=== PATIENT | female | born 1945 | race Caucasian/White ===

== ENCOUNTER 2019-02-10 16:41 | Inpatient (IN) ==
--- NOTE | 2019-02-10 17:47 | Emergency Department Note ---
ED Disposition Clinical Impression: Pneumonia Qualifiers: Pneumonia type: due to unspecified organism Laterality: right Lung location: lower lobe of lung Qualified Code(s): J18.1 - Lobar pneumonia, unspecified organism Disposition: Admitted as Observation Condition on Discharge: Fair Referrals: Chava Patel MD [Primary Care Provider] - - Critical Care Critical Care Time: No Attestation: On 02/10/19, the high probability of a clinically significant, sudden or life threatening deterioration of the following system(s) required my full and direct attention, intervention and personal management. The time I documented below is in addition to time spent performing reported procedures but includes the following listed in this critical care notation. Medical Decision Making - [place] Inquiry Pt receiving controlled substance: No Vital Signs: 02/10/19 16:49 02/10/19 17:53 Temperature 100.5 F H 99.8 F H Temperature Source Oral Oral Pulse Rate [Left Radial] 103 H 102 H Respiratory Rate 24 28 H Blood Pressure [Right Arm] 143/99 H 116/58 L Blood Pressure Mean [Right Arm] 113 77 Blood Pressure Source [Right Arm] Automatic Cuff Blood Pressure Position [Right Arm] Sitting Sitting 02 Sat by Pulse Oximetry 90 L 90 L Oxygen Delivery Method Nasal Cannula Nasal Cannula Oxygen Flow Rate (LPM) 4 4 - Lab Data Lab Results 02/10/19 17:30: WBC 5.6, RBC 4.44, Hgb 12.9, Hct 39.3, MCV 88.4, MCH 28.9, MCHC 32.7, RDW 12.9, Plt Count 166, MPV 8.6, Neut % (Auto) 90.2 H, Lymph % (Auto) 6.4 L, [place] % (Auto) 2.3, Eos % (Auto) 0.8, Baso % (Auto) 0.3, Neut # (Auto) 5.1, Lymph # (Auto) 0.4 L, [place] # (Auto) 0.1, Eos # (Auto) 0.0, Baso # (Auto) 0.0, Total Counted 100, Neutrophils % (Manual) 86 H, Band Neutrophils % 7.0, Lymphocytes % (Manual) 7 L, Platelet Estimate Normal, RBC Morphology Normal 02/10/19 17:30: Sodium 137, Potassium 3.7, Chloride 101, Carbon Dioxide 26, Anion Gap 13.7, BUN 16, Creatinine 0.78, Estimated Creat Clear 81, Estimated GFR 72, Est GFR ( Amer) 87, Glucose 103, Calcium 8.7, Troponin I 0.04 02/10/19 17:30: Total Bilirubin 0.9, Direct Bilirubin 0.2, Indirect Bilirubin 0.7, AST 32, ALT 19, Alkaline Phosphatase 112, Total Protein 6.6, Albumin 3.1 L 02/10/19 19:00: Urine Color Yellow, Urine Appearance Sl cloudy, Urine pH 6.5, Ur Specific [place] 1.020, Urine Protein Trace, Urine Glucose (UA) Negative, Urine Ketones Negative, Urine Blood Negative, Urine Nitrate Positive, Urine Bilirubin Negative, Urine Urobilinogen 4.0, Ur Leukocyte Esterase Trace, Urine WBC 5-10, Amorphous Sediment 2+, Urine Bacteria 4+ Result diagrams: 02/10/19 17:30 02/10/19 17:30 Orders (Tests/Meds): ED MEDICATIONS Generic Name Dose Route Start Last Admin Trade Name Freq PRN Reason Stop Dose Admin Azithromycin 500 mg/ Sodium 250 mls @ 250 mls/hr 02/10/19 18:00 02/10/19 19:19 Chloride IV 02/24/19 17:59 250 mls/hr Q24H HARDEEP Administration Protocol Ceftriaxone Sodium 1 gm/ 50 mls @ 100 mls/hr 02/10/19 18:00 02/10/19 18:59 Sodium Chloride IV 02/24/19 17:59 100 mls/hr Q24H HARDEEP Administration Protocol Discontinued Medications Generic Name Dose Route Start Last Admin Trade Name Freq PRN Reason Stop Dose Admin Acetaminophen 650 mg 02/10/19 18:16 02/10/19 18:59 Acetaminophen 325mg Tab PO 02/10/19 18:17 650 mg ONCE ONE Administration ORDERS Category Date Time Status D-Dimer Stat Lab 02/10/19 20:07 Ordered Influenza A&B Antigens, Rapid [Rapid Influenza A&B Lab 02/10/19 20:07 Ordered Antigens] Stat Lactic Acid Stat Lab 02/10/19 19:45 Received Blood Culture Stat Micro 02/10/19 18:50 Received Urine Culture Stat Micro 02/10/19 19:00 Received - Radiology Data #1 Image(s): Chest Image Reviewed: Yes I have reviewed radiologist's interpretation FINDINGS: The cardiomediastinal silhouette and pulmonary vascularity are within normal limits. Chronic interstitial changes are present with hyperinflation consistent with COPD. There is some vascular crowding in the right lung base. Cannot exclude infiltrate in the right lung base. Consider follow-up upright PA and lateral chest for further evaluation. No acute bony abnormalities. IMPRESSION: Chronic changes with possible right basilar atelectasis or infiltrate Dictated by: Jacob Arenas MD 02/10/2019 17:26 - ECG Data Tracing #1 EKG interpreted by Loco Garcia MD: Rhythm: sinus tachycardia Rate: 102 [place]: Left Ectopy: none Conduction: normal ST Segment Changes: none T Wave Changes: Nonspecific Q Waves: none Poor R wave progression - Physician Consults Physician Consulted: Jorge Time: 20:10 Reason -: Admission Comment/Response: Agrees to admit the patient to the hospital. We discussed the patient's clinical information, including history, exam, laboratory and radiology results and ED course. Per hospital procedure, I will write temporary bridge inpatient orders on the patient. Specific orders requested by the admitting physician: Requests d-dimer. Continue antibiotics. General Adult HPI - General Chief complaint: Shortness of Breath/Dyspnea Stated complaint: SOB, Chills, Body Aches Time Seen by Provider: 02/10/19 17:47 Mode of Arrival: EMS Limitations: No Limitations Description of Symptoms (Recalled from ER Triage Doc. by RN): to ed per squad with c/o sob, cough, nausea starting lastnight. pt denies chest pain, fever, chills. - History of Present Illness HPI narrative: Complains of shaking chills that began last night. Some trouble breathing today. Has had a cough productive of green sputum for about 3 weeks. Denies rhinorrhea or sore throat. Had a headache earlier today, but took Advil 2 hours ago and has no pain at present. No abdominal pain or diarrhea. Nausea, but no vomiting. No urinary symptoms. Has had some right side pain at the costal margin intermittently for a few months, but not now. - Related Data Allergies Allergy/AdvReac Type Severity Reaction Status Date / Time No Known Allergies Allergy Verified 02/10/19 17:40 [facility] History - Hepatitis A Screen Drug use history?: No High risk sexual behaviors?: No History of sexually transmitted infection?: No Currently employed?: No Childcare worker?: No Do you have indoor plumbing?: Yes Do you have electricity?: Yes Attestation statement:: This patient has been screened for Hepatitis A risk factors. I have reviewed the patient's past medical history: Yes - Social History Alcohol Intake: never Occupational Status: other ROS Obtained: Yes All systems reviewed & no additional complaints - Constitutional Constitutional: Reports chills, Denies fever(s) - ENT Ears, Nose, Mouth, and Throat: Denies nasal discharge, Denies sore throat - Cardiovascular Cardiovascular: Denies chest pain - Respiratory Respiratory: Yes cough, Yes dyspnea - Gastrointestinal Gastrointestingal: Reports: nausea. Denies: abdominal pain, diarrhea, vomiting - Genitourinary Female Genitourinary: Denies difficulty voiding - Neurologic Neurologic: Reports as per HPI, Reports headache(s) Physical Exam - General General appearance: alert, in no apparent distress - Head Head exam: atraumatic, normocephalic - Eye Eye exam: Present: normal appearance, EOMI - ENT ENT exam: Present: mucous membranes moist - Neck Neck exam: Present: normal inspection, trachea midline - Chest Chest inspection: Present: normal inspection, symmetric chest wall rise - Respiratory Respiratory exam: Present: normal lung sounds bilaterally. Absent: respiratory distress - Cardiovascular Cardiovascular exam: Present: normal rhythm, tachycardia, normal heart sounds - Abdominal Exam Abdominal exam: Present: soft, normal bowel sounds. Absent: distention, tenderness, guarding, rebound, rigidity - Extremities Exam Extremities exam: Present: normal inspection - Neurological Exam Neurological exam: Present: alert, oriented X3 - Psychiatric Psychiatric exam: Present: normal affect, normal mood - Skin Skin exam: Present: warm, dry
[2019-02-10 17:55] LABS: Anion Gap 13.7 mEq/L (5-15); Calcium 8.7 mg/dL (8.5-10.1)
[2019-02-10 18:09] LABS: Basophils % 0.3 % (0.1-2.0); Eosinophils % 0.8 % (0.1-12.0); Hematocrit 39.3 % (37.0-47.0); Hemoglobin 12.9 g/dL (12.2-16.2); Lymphocytes # 0.4 K/mm3 (0.7-4.5); Lymphocytes % 6.4 % (10-50); Mean Corpuscular HGB Conc 32.7 g/dL (31.8-35.4); Mean Corpuscular Volume 88.4 fl (81-99); Mean Platelet Volume 8.6 fl (7.4-10.4); Monocytes # 0.1 K/mm3 (0.1-1.0); Monocytes % 2.3 % (1.7-9.3); Neutrophils # 5.1 K/mm3 (1.8-7.8); Neutrophils % 90.2 % (37.0-80.0); Platelet Count 166 K/mm3 (142-424); Red Blood Count 4.44 M/mm3 (4.20-5.40); Red Cell Distribution Width 12.9 % (11.5-17.5); White Blood Count 5.6 K/mm3 (4.8-10.8)
[2019-02-10 18:47] LABS: Lymphocytes % 7 % (10-50); Neutrophils % 86 % (42-76); RBC Morphology Normal; Total Cells Counted 100
[2019-02-10 19:05] LABS: Albumin Level 3.1 gm/dL (3.4-5.0); Bilirubin,Direct 0.2 mg/dL (0.0-0.2); Bilirubin,Indirect 0.7 mg/dL (0.0-0.9); Bilirubin,Total 0.9 mg/dL (0.2-1.0); Total Protein,Serum 6.6 gm/dL (6.4-8.2)
[2019-02-10 19:17] LABS: Microscopic, Urine URINE MICROSCOPIC (MICROSCOPIC)
[2019-02-10 19:39] LABS: Appearance,Urine SL CLOUDY (Clear); Bilirubin,Urine Negative (Negative); Blood, Urine Negative (Negative); Color,Urine YELLOW (Yellow); Glucose,Urine (UA) Negative (Negative); Ketones,Urine Negative (Negative); Leukocyte Esterase,Urine TRACE (Negative); PH,Urine 6.5 (5.0-8.5); Protein,Urine TRACE (Negative)
[2019-02-10 19:42] LABS: Bacteria,Urine 4+ /lpf
[2019-02-10 19:43] LABS: Amorphous Sediment,Urine 2+ /lpf
[2019-02-10 21:25] LABS: ABG Base Excess -1.1 mmol/L (-2.4-2.3); ABG HCO3 23.1 mmhg (22.0-26.0); ABG Oxygen Saturation 95 % (90-100); ABG PCO2 35.3 mmhg (35.0-45.0); ABG PH 7.43 mmol/L (7.35-7.45); ABG PO2 73.7 mmhg (80-100); ABG TCO2 24.2 mmhg (23-27)
[2019-02-10 21:26] LABS: Allen's Test Y; Oxygen 4 %
--- NOTE | 2019-02-10 22:49 | History & Physical Report ---
*Admission Date: 02/10/19 *Chief complaint: Shortness of breath, shaking chills *History of present illness: This 73-year-old white female states that she has not felt well for nearly a month. Yesterday she developed a fever and shaking chills. She has had some fever and shaking chills today as well. She has had a cough productive of greenish sputum. She is not seeing blood in the sputum. She has not had chest pain. She has not had leg pain. She presented to the emergency room at [facility] for evaluation. Her chest x-ray is suggestive of atelectasis and possible infiltrate in the right base. Her white count is not elevated. Her oxygen saturations are low, 90%. Per Dr. Patel's request on admission d-dimer was obtained and is greater than 3000. The CTA of the chest with pulmonary embolism protocol has been obtained and the results are pending. She has received 100 mg of enoxaparin subcutaneously. She has been started on IV antibiotics, azithromycin and ceftriaxone. She has a history of hypertension hyperlipidemia, and depression. [facility] History Medical History: Reports:: Anxiety, Hypertension Denies:: Congestive Heart Failure, Deep Vein Thrombosis, Palpitations, Pulmonary Embolism, Renal Insufficiency *Have you ever received a pneumonia vaccine?: No *Have you received a flu vaccine this season?: Yes Other Medical History: Reports: Cataracts. Denies: Thyroid Disease Laterality Cases: Right: Carpal Tunnel Release, Bilateral: Cataract, Tonsillectomy Other Surgeries: Yes: Tubal Ligation Amputation: No Fractures: No - *Social History Educational Level: Completed High School Smoking Status: Former smoker Tobacco Type: cigarettes (Stopped 18 years ago) # Packs/Day (cigarettes): 1 #Yrs smoked (if former smoker): 39 Alcohol Intake: never Substance Use Type: denies use *Occupational Status:: other *Travel in the last 8 weeks: None Family Hx:: Coronary Artery Disease, Diabetes Comment: 2 brothers 5 sons 4 daughters. One daughter of pulmonary disease. Review of Systems - Constitutional Reports chills, Reports excessive sweating (Some recent), Reports fever(s), Reports lack of energy, Reports weakness, Denies weight loss - Eyes Denies change in vision - ENT Denies dizziness, Denies difficulty swallowing - *Cardiovascular Reports shortness of breath, Denies chest pain, Denies irregular heart rhythm, Denies radiating jaw, neck or arm pain, Denies fast heart rate - *Respiratory Reports change in phlegm color, Reports chest congestion, Reports cough, Reports shortness of breath, Denies coughing up blood, Denies pain with cough - *Gastrointestinal Denies abdominal pain, Denies change in bowel habits, Denies vomiting blood, Denies black, tarry stools - *Genitourinary Denies painful urination - *Musculoskeletal Reports joint pain, Reports back pain, Reports muscle weakness, Reports body aches - Integumentary/Breasts Denies bleeding lesions - *Neurologic Reports headache(s), Denies abnormal speech, Denies behavioral changes, Denies localized weakness - Psychiatric Denies behavioral changes, Denies depression - Hematologic/Lymphatic Denies easy bleeding, Denies easy bruising (Takes a baby aspirin each evening) - Allergic/Immunologic Denies lip swelling, Denies throat swelling Meds Home Medications Medication Instructions Recorded Confirmed Type Carvedilol [Carvedilol 12.5mg Tab] 12.5 mg PO DAILY 02/10/19 02/10/19 History Carvedilol [Carvedilol 12.5mg Tab] 25 mg PO DAILY 02/10/19 02/10/19 History Sertraline HCl [Zoloft] 100 mg PO DAILY 02/10/19 02/10/19 History Spironolactone [Spironolactone 25 mg PO DAILY 02/10/19 02/10/19 History 25mg Tablet] Allergies Allergy/AdvReac Type Severity Reaction Status Date / Time No Known Allergies Allergy Verified 02/10/19 17:40 Exam Vital signs and Labs for Last 24 Hours: Temp Pulse Resp BP Pulse Ox 97.9 F 80 22 95/52 L 92 L 02/10/19 20:41 02/10/19 20:41 02/10/19 20:41 02/10/19 20:41 02/10/19 20:41 Laboratory Results - last 24 hr 02/10/19 17:30: WBC 5.6, RBC 4.44, Hgb 12.9, Hct 39.3, MCV 88.4, MCH 28.9, MCHC 32.7, RDW 12.9, Plt Count 166, MPV 8.6, Neut % (Auto) 90.2 H, Lymph % (Auto) 6.4 L, [place] % (Auto) 2.3, Eos % (Auto) 0.8, Baso % (Auto) 0.3, Neut # (Auto) 5.1, Lymph # (Auto) 0.4 L, [place] # (Auto) 0.1, Eos # (Auto) 0.0, Baso # (Auto) 0.0, Total Counted 100, Neutrophils % (Manual) 86 H, Band Neutrophils % 7.0, Lymphocytes % (Manual) 7 L, Platelet Estimate Normal, RBC Morphology Normal 02/10/19 17:30: Sodium 137, Potassium 3.7, Chloride 101, Carbon Dioxide 26, Anion Gap 13.7, BUN 16, Creatinine 0.78, Estimated Creat Clear 81, Estimated GFR 72, Est GFR ( Amer) 87, Glucose 103, Calcium 8.7, Troponin I 0.04 02/10/19 17:30: Total Bilirubin 0.9, Direct Bilirubin 0.2, Indirect Bilirubin 0.7, AST 32, ALT 19, Alkaline Phosphatase 112, Total Protein 6.6, Albumin 3.1 L 02/10/19 17:30: D-Dimer 3540 H* 02/10/19 19:00: Urine Color Yellow, Urine Appearance Sl cloudy, Urine pH 6.5, Ur Specific [place] 1.020, Urine Protein Trace, Urine Glucose (UA) Negative, Urine Ketones Negative, Urine Blood Negative, Urine Nitrate Positive, Urine Bilirubin Negative, Urine Urobilinogen 4.0, Ur Leukocyte Esterase Trace, Urine WBC 5-10, Amorphous Sediment 2+, Urine Bacteria 4+ 02/10/19 19:45: Lactate 1.1 02/10/19 20:10: Influenza Type A Ag Negative, Influenza Type B Ag Negative 02/10/19 21:23: Specimen Source R/r, O2 % 4, ABG pH 7.43, ABG pCO2 35.3, ABG pO2 73.7 L, ABG HCO3 23.1, ABG Total CO2 24.2, ABG O2 Saturation 95, ABG Base Excess -1.1, Jacob Test Y I & O for Last 24 hours: Intake & Output 02/08/19 02/09/19 02/10/19 02/11/19 11:59 11:59 11:59 11:59 Weight 225 lb 9 oz - Constitutional no acute distress (In bed. Nasal O2 in place.) - *Routine HEENT Exam Head: Present: normocephalic Eye: Present: PERRL ENT: Present: mucous membranes moist - *Routine Neck Exam Present: supple. Absent: lymphadenopathy, thyromegaly - Routine Chest/Breast/Axilla Exam Chest wall: Absent: tenderness - *Routine Respiratory Exam Present: rales (Rales heard in the right base. Otherwise moving air well.). Absent: respiratory distress - *Routine Cardiovascular Exam Present: RRR - *Routine Abdominal Exam Present: soft (Obese) - *Routine Rectal Exam Comments: Rectal exam deferred - *Routine Extremities Exam Present: pulses intact. Absent: edema - *Routine Skin Exam Present: intact Comments: Mild diaphoresis - *Routine Neurological Exam Present: alert, oriented X3. Absent: motor deficit H&P: Result - Imaging and Cardiology CT scan - chest Status: VRC (No evidence of pulmonary embolism. Mild atelectasis/scarring. No consolidation area) Assessment and Plan (1) Pneumonia Current visit: Yes Status: Acute Qualifiers: Pneumonia type: due to unspecified organism Laterality: right Lung location: lower lobe of lung Qualified Code(s): J18.1 - Lobar pneumonia, unspecified organism Category: Medical Code(s): J18.9 - Pneumonia, unspecified organism (2) Rigors Current visit: Yes Status: Acute Category: Medical Code(s): R68.89 - Other general symptoms and signs (3) Elevated d-dimer Current visit: Yes Status: Acute Category: Medical Code(s): R79.89 - Other specified abnormal findings of blood chemistry - Assessment and plan all Dx Assessment and Plan for all problems:: Continue antibiotics. I will continue Lovenox 40 mg daily.
[2019-02-11 05:43] LABS: Basophils % 0.2 % (0.1-2.0); Eosinophils % 0.1 % (0.1-12.0); Hematocrit 34.9 % (37.0-47.0); Lymphocytes # 0.7 K/mm3 (0.7-4.5); Lymphocytes % 9.7 % (10-50); Mean Platelet Volume 8.4 fl (7.4-10.4); Monocytes # 0.3 K/mm3 (0.1-1.0); Neutrophils % 85.9 % (37.0-80.0); Platelet Count 120 K/mm3 (142-424); Red Blood Count 3.83 M/mm3 (4.20-5.40); White Blood Count 6.9 K/mm3 (4.8-10.8)
[2019-02-11 05:44] LABS: Hemoglobin 11.2 g/dL (12.2-16.2)
[2019-02-11 06:01] LABS: Anion Gap 8.1 mEq/L (5-15)
[2019-02-11 06:05] LABS: Calcium 7.7 mg/dL (8.5-10.1)
[2019-02-11 06:15] LABS: Lymphocytes % 11 % (10-50); Neutrophils % 80 % (42-76); RBC Morphology Normal; Total Cells Counted 100
--- NOTE | 2019-02-11 08:11 | Pharmacy Consult Notes ---
[facility] Pharmacy VTE Monitoring - Patient Demographics Admission date: 02/10/19 Report Date: 02/11/19 Time: 08:11 Allergies/Adverse Reactions: Patient Allergies No Known Allergies Allergy (Verified 02/10/19 17:40) Height: 1.6 m Weight: 102.313 kg Patient Problems: Current Active Problems Pneumonia (Acute) Rigors (Acute) Elevated d-dimer (Acute) - VTE Risk Labs: VTE Related Lab Results Hgb 11.2 g/dL (12.2-16.2) L D 02/11/19 05:10 Hct 34.9 % (37.0-47.0) L 02/11/19 05:10 Plt Count 120 K/mm3 (142-424) L D 02/11/19 05:10 BUN 15 mg/dL (7-18) 02/11/19 05:10 Creatinine 0.83 mg/dL (0.55-1.02) 02/11/19 05:10 Estimated Creat Clear 80 mL/min (50-200) 02/11/19 05:10 Was VTE Risk Assessment Performed: Yes VTE Score: 5 VTE Risk Level: Low Risk - Prophylaxis VTE Prophylaxis Ordered?: Yes Types of VTE Prophylaxis: TEDS Knee High Location of Applied Device: Bilateral Lower Extremeties - VTE Diagnosis Confirmed Treatment or plan recommended: Continue Current Treatment
--- NOTE | 2019-02-11 10:34 | Progress Note ---
Internal Medicine - PN: Subj *Date: 02/11/19 *Time: 10:31 Interval history: She feels somewhat better. She has a's light cough. She produced some sputum for examination. She is breathing easy however. She is afebrile. White count is still not elevated. Exam Vital signs and Labs for Last 24 Hours: Temp Pulse Resp BP Pulse Ox 100.7 F H 73 19 107/77 L 94 L 02/11/19 08:00 02/11/19 10:24 02/11/19 06:00 02/11/19 06:00 02/11/19 06:10 Laboratory Results - last 24 hr 02/10/19 17:30: WBC 5.6, RBC 4.44, Hgb 12.9, Hct 39.3, MCV 88.4, MCH 28.9, MCHC 32.7, RDW 12.9, Plt Count 166, MPV 8.6, Neut % (Auto) 90.2 H, Lymph % (Auto) 6.4 L, [place] % (Auto) 2.3, Eos % (Auto) 0.8, Baso % (Auto) 0.3, Neut # (Auto) 5.1, Lymph # (Auto) 0.4 L, [place] # (Auto) 0.1, Eos # (Auto) 0.0, Baso # (Auto) 0.0, Total Counted 100, Neutrophils % (Manual) 86 H, Band Neutrophils % 7.0, Lymphocytes % (Manual) 7 L, Platelet Estimate Normal, RBC Morphology Normal 02/10/19 17:30: Sodium 137, Potassium 3.7, Chloride 101, Carbon Dioxide 26, Anion Gap 13.7, BUN 16, Creatinine 0.78, Estimated Creat Clear 81, Estimated GFR 72, Est GFR ( Amer) 87, Glucose 103, Calcium 8.7, Troponin I 0.04 02/10/19 17:30: Total Bilirubin 0.9, Direct Bilirubin 0.2, Indirect Bilirubin 0.7, AST 32, ALT 19, Alkaline Phosphatase 112, Total Protein 6.6, Albumin 3.1 L 02/10/19 17:30: D-Dimer 3540 H* 02/10/19 19:00: Urine Color Yellow, Urine Appearance Sl cloudy, Urine pH 6.5, Ur Specific [place] 1.020, Urine Protein Trace, Urine Glucose (UA) Negative, Urine Ketones Negative, Urine Blood Negative, Urine Nitrate Positive, Urine Bilirubin Negative, Urine Urobilinogen 4.0, Ur Leukocyte Esterase Trace, Urine WBC 5-10, Amorphous Sediment 2+, Urine Bacteria 4+ 02/10/19 19:45: Lactate 1.1 02/10/19 20:10: Influenza Type A Ag Negative, Influenza Type B Ag Negative 02/10/19 21:23: Specimen Source R/r, O2 % 4, ABG pH 7.43, ABG pCO2 35.3, ABG pO2 73.7 L, ABG HCO3 23.1, ABG Total CO2 24.2, ABG O2 Saturation 95, ABG Base Excess -1.1, Jacob Test Y 02/11/19 05:10: WBC 6.9, RBC 3.83 L, Hgb 11.2 L D, Hct 34.9 L, MCV 91.0, MCH 29.1, MCHC 32.0, RDW 13.0, Plt Count 120 L D, MPV 8.4, Neut % (Auto) 85.9 H, Lymph % (Auto) 9.7 L, [place] % (Auto) 4.0, Eos % (Auto) 0.1, Baso % (Auto) 0.2, Neut # (Auto) 6.0, Lymph # (Auto) 0.7, [place] # (Auto) 0.3, Eos # (Auto) 0.0, Baso # (Auto) 0.0, Total Counted 100, Neutrophils % (Manual) 80 H, Band Neutrophils % 9.0 H, Lymphocytes % (Manual) 11, Platelet Estimate Normal, RBC Morphology Normal 02/11/19 05:10: Sodium 141, Potassium 4.1, Chloride 107, Carbon Dioxide 30, Anion Gap 8.1, BUN 15, Creatinine 0.83, Estimated Creat Clear 80, Estimated GFR 67, Est GFR ( Amer) 81, Glucose 93, Calcium 7.7 L D I & O for Last 24 hours: Intake & Output 02/08/19 02/09/19 02/10/19 02/11/19 11:59 11:59 11:59 11:59 Intake Total 3861 / 3861 Output Total 650 / 650 Balance 3211 / 3211 Weight 225 lb 9 oz Microbiology Reports for the Last 24 Hours: Microbiology 02/10/19 19:00 Urine,Catheterized Urine Culture - Preliminary 02/11/19 06:05 Sputum - Expectorated Sputum Gram Stain - Final - Constitutional no acute distress - *Routine HEENT Exam Head: Present: normocephalic Eye: Present: PERRL ENT: Present: mucous membranes moist - *Routine Neck Exam Present: supple - Routine Chest/Breast/Axilla Exam Breast: Absent: tenderness - *Routine Respiratory Exam Present: CTA bilaterally (The right basilar rales have actually decreased it seems.) - *Routine Cardiovascular Exam Present: RRR - *Routine Abdominal Exam Present: soft (Obese). Absent: tenderness - *Routine Extremities Exam Absent: edema Assessment and Plan (1) Pneumonia Current visit: Yes Status: Acute Qualifiers: Pneumonia type: due to unspecified organism Laterality: right Lung location: lower lobe of lung Qualified Code(s): J18.1 - Lobar pneumonia, unspecified organism Category: Medical Code(s): J18.9 - Pneumonia, unspecified organism (2) Rigors Current visit: Yes Status: Acute Category: Medical Code(s): R68.89 - Other general symptoms and signs (3) Elevated d-dimer Current visit: Yes Status: Acute Category: Medical Code(s): R79.89 - Other specified abnormal findings of blood chemistry - Assessment and plan all Dx Assessment and Plan for all problems:: Continue present regimen
--- NOTE | 2019-02-12 08:19 | Progress Note ---
Internal Medicine - PN: Subj *Date: 02/12/19 *Time: 08:17 Interval history: She is feeling quite well today. She is anxious to go home. She will probably be ready for discharge tomorrow morning. Exam Vital signs and Labs for Last 24 Hours: Temp Pulse Resp BP Pulse Ox 97.6 F 62 18 123/66 94 L 02/12/19 04:00 02/12/19 05:28 02/12/19 04:00 02/12/19 04:00 02/12/19 05:28 Laboratory Results - last 24 hr 02/10/19 19:00: Urine Color Yellow, Urine Appearance Sl cloudy, Urine pH 6.5, Ur Specific [place] 1.020, Urine Protein Trace, Urine Glucose (UA) Negative, Urine Ketones Negative, Urine Blood Negative, Urine Nitrate Positive, Urine Bilirubin Negative, Urine Urobilinogen 4.0, Ur Leukocyte Esterase Trace, Urine WBC 5-10, Amorphous Sediment 2+, Urine Bacteria 4+ I & O for Last 24 hours: Intake & Output 02/09/19 02/10/19 02/11/19 02/12/19 11:59 11:59 11:59 11:59 Intake Total 3861 / 3861 3310 / 3310 Output Total 850 / 850 1150 / 1150 Balance 3011 / 3011 2160 / 2160 Weight 225 lb 9 oz 238 lb 2 oz Microbiology Reports for the Last 24 Hours: Microbiology 02/10/19 19:00 Urine,Catheterized Urine Culture - Preliminary Gram Negative Rods 02/11/19 06:05 Sputum - Expectorated Sputum Gram Stain - Final - Constitutional no acute distress - *Routine HEENT Exam Head: Present: normocephalic Eye: Present: PERRL ENT: Present: mucous membranes moist - *Routine Respiratory Exam Present: CTA bilaterally (Only a few rales.) - *Routine Cardiovascular Exam Present: RRR - *Routine Abdominal Exam Present: soft (Obese) - *Routine Extremities Exam Absent: edema - *Routine Neurological Exam Present: alert Assessment and Plan (1) Pneumonia Current visit: Yes Status: Acute Qualifiers: Pneumonia type: due to unspecified organism Laterality: right Lung location: lower lobe of lung Qualified Code(s): J18.1 - Lobar pneumonia, unspecified organism Category: Medical Code(s): J18.9 - Pneumonia, unspecified organism (2) Rigors Current visit: Yes Status: Acute Category: Medical Code(s): R68.89 - Other general symptoms and signs (3) Elevated d-dimer Current visit: Yes Status: Acute Category: Medical Code(s): R79.89 - Other specified abnormal findings of blood chemistry - Assessment and plan all Dx Assessment and Plan for all problems:: Saline lock. DC telemetry. Anticipate discharge in the morning.
--- NOTE | 2019-02-12 17:06 | Electrocardiograph Report ---
APPROVED REPORT Exam: Resting ECG HR:102 bpm ECG Measurements Heart Rate 102 AXES RI 126 P -8 QRSd 86 QRS -33 QT 330 T42 QTc 430 <Conclusion> Sinus tachycardia Left axis deviation Pulmonary disease pattern Nonspecific ST-T wave abnormalities Abnormal ECG Electronically signed by : Shola Chávez, 02/12/2019 17:06:37
[2019-02-13 06:36] LABS: Basophils % 0.6 % (0.1-2.0); Eosinophils # 0.1 K/mm3 (0.0-0.4); Eosinophils % 3.5 % (0.1-12.0); Hematocrit 33.9 % (37.0-47.0); Hemoglobin 11.3 g/dL (12.2-16.2); Lymphocytes # 1.3 K/mm3 (0.7-4.5); Lymphocytes % 30.5 % (10-50); Mean Corpuscular HGB Conc 33.4 g/dL (31.8-35.4); Mean Corpuscular Volume 90.6 fl (81-99); Monocytes # 0.3 K/mm3 (0.1-1.0); Monocytes % 6.4 % (1.7-9.3); Neutrophils # 2.5 K/mm3 (1.8-7.8); Platelet Count 120 K/mm3 (142-424); Red Blood Count 3.74 M/mm3 (4.20-5.40); White Blood Count 4.2 K/mm3 (4.8-10.8)
[2019-02-13 06:47] LABS: Anion Gap 8.6 mEq/L (5-15)
[2019-02-13 07:05] LABS: Calcium 8.4 mg/dL (8.5-10.1)
--- NOTE | 2019-02-13 08:22 | Progress Note ---
Internal Medicine - PN: Subj *Date: 02/13/19 *Time: 08:19 Interval history: Dyspneic on exertion. Nurse reports O2 sats 88 when going to the bathroom and sometimes when sleeping. O2 restarted when back from bathroom which helped. Patient denies chest pain. She is eating without problems. She is voiding QS. She has been sitting in the chair and ambulates in the room. Urine shows E. coli urinary tract infection sensitive to the Rocephin. She does have one positive blood culture with ID pending. Exam Vital signs and Labs for Last 24 Hours: Temp Pulse Resp BP Pulse Ox 97.7 F 73 20 141/71 H 93 L 02/13/19 08:00 02/13/19 08:00 02/13/19 08:00 02/13/19 08:00 02/13/19 08:00 Laboratory Results - last 24 hr 02/13/19 05:37: WBC 4.2 L D, RBC 3.74 L, Hgb 11.3 L, Hct 33.9 L, MCV 90.6, MCH 30.3, MCHC 33.4, RDW 13.0, Plt Count 120 L, MPV 9.0, Neut % (Auto) 59.0, Lymph % (Auto) 30.5, Blount % (Auto) 6.4, Eos % (Auto) 3.5, Baso % (Auto) 0.6, Neut # (Auto) 2.5, Lymph # (Auto) 1.3, Blount # (Auto) 0.3, Eos # (Auto) 0.1, Baso # (Auto) 0.0 02/13/19 05:37: Sodium 142, Potassium 3.6, Chloride 107, Carbon Dioxide 30, Anion Gap 8.6, BUN 11 D, Creatinine 0.64 D, Estimated Creat Clear 39, Estimated GFR 91, Est GFR ( Amer) 110 D, Glucose 88, Calcium 8.4 L I & O for Last 24 hours: Intake & Output 02/10/19 02/11/19 02/12/19 02/13/19 11:59 11:59 11:59 11:59 Intake Total 3861 / 3861 3510 / 3510 250 / 250 Output Total 850 / 850 1150 / 1150 1300 / 1300 Balance 3011 / 3011 2360 / 2360 -1050 / -1050 Weight 225 lb 9 oz 238 lb 2.011 oz 239 lb 1 oz Microbiology Reports for the Last 24 Hours: Microbiology 02/10/19 18:50 Blood Blood Culture - Preliminary Gram Positive Cocci 02/11/19 06:05 Sputum - Expectorated Sputum Gram Stain - Final 02/11/19 06:05 Sputum - Expectorated Sputum Sputum Culture - Final Normal Respiratory Katrin 02/10/19 19:00 Urine,Catheterized Urine Culture - Final Escherichia coli 02/10/19 18:50 Blood Blood Culture - Preliminary NO GROWTH AFTER 48 HOURS - Constitutional no acute distress Comments: Appears comfortable. O2 on at 1 L/min. - *Routine Respiratory Exam Present: diminished air movement (Posteriorly) - *Routine Cardiovascular Exam Present: RRR - *Routine Abdominal Exam Present: soft, normoactive bowel sounds. Absent: tenderness - *Routine Extremities Exam Absent: edema, calf tenderness - *Routine Neurological Exam Present: alert, oriented X3 Assessment and Plan (1) Pneumonia Current visit: Yes Status: Acute Qualifiers: Pneumonia type: due to unspecified organism Laterality: right Lung location: lower lobe of lung Qualified Code(s): J18.1 - Lobar pneumonia, unspecified organism Category: Medical Code(s): J18.9 - Pneumonia, unspecified organism (2) Rigors Current visit: Yes Status: Acute Category: Medical Code(s): R68.89 - Other general symptoms and signs (3) Elevated d-dimer Current visit: Yes Status: Acute Category: Medical Code(s): R79.89 - Other specified abnormal findings of blood chemistry (4) E. coli UTI (urinary tract infection) Current visit: Yes Status: Acute Category: Medical Code(s): N39.0 - Urinary tract infection, site not specified; B96.20 - Unspecified Escherichia coli [E. coli] as the cause of diseases classified elsewhere (5) Bacteremia Current visit: Yes Status: Acute Category: Medical Code(s): R78.81 - Bacteremia (6) Morbid obesity with BMI of 40.0-44.9, adult Current visit: Yes Status: Acute Category: Medical Code(s): E66.01 - Morbid (severe) obesity due to excess calories; Z68.41 - Body mass index (BMI) 40.0-44.9, adult - Assessment and plan all Dx Assessment and Plan for all problems:: Continue with current IV antibiotics and duo nebs. Await ID of blood culture.
--- NOTE | 2019-02-14 07:55 | Progress Note ---
Internal Medicine - PN: Subj *Date: 02/14/19 *Time: 08:09 Interval history: Had a good day yesterday. She was up and about in the room. O2 sats did drop and oxygen was reapplied periodically as needed. She does have shortness of breath with exertion. She denies cough. She did sleep well and is eating well. She denies chest pain. She really wants to go home. Blood culture bacteria not IDed as yet. Repeat chest x-ray yesterday showed a mild CHF. I discussed with patient echocardiogram. She states she may have had one about 30 years ago. Exam Vital signs and Labs for Last 24 Hours: Temp Pulse Resp BP Pulse Ox 98.7 F 70 19 133/76 93 L 02/14/19 03:49 02/14/19 05:48 02/14/19 03:49 02/14/19 03:49 02/14/19 05:48 I & O for Last 24 hours: Intake & Output 02/11/19 02/12/19 02/13/19 02/14/19 11:59 11:59 11:59 11:59 Intake Total 3861 / 3861 3510 / 3510 250 / 250 480 / 480 Output Total 850 / 850 1150 / 1150 1300 / 1300 300 / 300 Balance 3011 / 3011 2360 / 2360 -1050 / -1050 180 / 180 Weight 225 lb 9 oz 238 lb 2.011 oz 239 lb 1 oz 236 lb 1 oz Microbiology Reports for the Last 24 Hours: Microbiology 02/10/19 18:50 Blood Blood Culture - Preliminary 02/10/19 18:50 Blood Blood Culture - Preliminary Gram Positive Cocci 02/11/19 06:05 Sputum - Expectorated Sputum Gram Stain - Final 02/11/19 06:05 Sputum - Expectorated Sputum Sputum Culture - Final Normal Respiratory Katrin 02/10/19 19:00 Urine,Catheterized Urine Culture - Final Escherichia coli Radiology Reports for the Last 24 Hours: 02/13/2019 chest x-ray IMPRESSION: Mild CHF with lingular infiltrate and trace right effusion - Constitutional no acute distress Comments: Appears comfortable. Wearing O2 - *Routine Respiratory Exam Comments: Few bibasilar crackles - *Routine Cardiovascular Exam Present: RRR - *Routine Abdominal Exam Present: soft, normoactive bowel sounds. Absent: tenderness, distended - *Routine Extremities Exam Absent: edema, calf tenderness - *Routine Neurological Exam Present: alert, oriented X3 Assessment and Plan (1) Pneumonia Current visit: Yes Status: Acute Qualifiers: Pneumonia type: due to unspecified organism Laterality: right Lung location: lower lobe of lung Qualified Code(s): J18.1 - Lobar pneumonia, unspecified organism Category: Medical Code(s): J18.9 - Pneumonia, unspecified organism (2) Rigors Current visit: Yes Status: Acute Category: Medical Code(s): R68.89 - Other general symptoms and signs (3) Elevated d-dimer Current visit: Yes Status: Acute Category: Medical Code(s): R79.89 - Other specified abnormal findings of blood chemistry (4) E. coli UTI (urinary tract infection) Current visit: Yes Status: Acute Category: Medical Code(s): N39.0 - Urinary tract infection, site not specified; B96.20 - Unspecified Escherichia coli [E. coli] as the cause of diseases classified elsewhere (5) Bacteremia Current visit: Yes Status: Acute Category: Medical Code(s): R78.81 - Bacteremia (6) Morbid obesity with BMI of 40.0-44.9, adult Current visit: Yes Status: Acute Category: Medical Code(s): E66.01 - Morbid (severe) obesity due to excess calories; Z68.41 - Body mass index (BMI) 40.0-44.9, adult (7) CHF (congestive heart failure) Current visit: Yes Status: Acute Category: Medical Code(s): I50.9 - Heart failure, unspecified (8) Hypoxia Current visit: Yes Status: Acute Category: Medical Code(s): R09.02 - Hypoxemia - Assessment and plan all Dx Assessment and Plan for all problems:: Echocardiogram. Will most likely need home oxygen to use as needed.
--- NOTE | 2019-02-14 09:33 | Progress Note ---
Internal Medicine - PN: Subj *Date: 02/14/19 *Time: 09:32 Exam Vital signs and Labs for Last 24 Hours: Temp Pulse Resp BP Pulse Ox 97.9 F 71 20 134/79 93 L 02/14/19 08:00 02/14/19 08:00 02/14/19 08:00 02/14/19 08:00 02/14/19 08:00 I & O for Last 24 hours: Intake & Output 02/11/19 02/12/19 02/13/19 02/14/19 23:59 23:59 23:59 23:59 Intake Total 4581 / 4581 2840 / 2840 680 / 680 360 / 360 Output Total 1550 / 1550 1050 / 1050 700 / 700 300 / 300 Balance 3031 / 3031 1790 / 1790 -20 / -20 60 / 60 Weight 108.012 kg 108.437 kg 107.076 kg Microbiology Reports for the Last 24 Hours: Microbiology 02/10/19 18:50 Blood Blood Culture - Preliminary 02/10/19 18:50 Blood Blood Culture - Preliminary Gram Positive Cocci 02/11/19 06:05 Sputum - Expectorated Sputum Gram Stain - Final 02/11/19 06:05 Sputum - Expectorated Sputum Sputum Culture - Final Normal Respiratory Katrin 02/10/19 19:00 Urine,Catheterized Urine Culture - Final Escherichia coli Assessment and Plan (1) Pneumonia Current visit: Yes Status: Acute Qualifiers: Pneumonia type: due to unspecified organism Laterality: right Lung location: lower lobe of lung Qualified Code(s): J18.1 - Lobar pneumonia, unspecified organism Category: Medical Code(s): J18.9 - Pneumonia, unspecified organism (2) Rigors Current visit: Yes Status: Acute Category: Medical Code(s): R68.89 - Other general symptoms and signs (3) Elevated d-dimer Current visit: Yes Status: Acute Category: Medical Code(s): R79.89 - Other specified abnormal findings of blood chemistry (4) E. coli UTI (urinary tract infection) Current visit: Yes Status: Acute Category: Medical Code(s): N39.0 - Urinary tract infection, site not specified; B96.20 - Unspecified Escherichia coli [E. coli] as the cause of diseases classified elsewhere (5) Bacteremia Current visit: Yes Status: Acute Category: Medical Code(s): R78.81 - Bacteremia (6) Morbid obesity with BMI of 40.0-44.9, adult Current visit: Yes Status: Acute Category: Medical Code(s): E66.01 - Morbid (severe) obesity due to excess calories; Z68.41 - Body mass index (BMI) 40.0-44.9, adult (7) CHF (congestive heart failure) Current visit: Yes Status: Acute Category: Medical Code(s): I50.9 - Heart failure, unspecified (8) Hypoxia Current visit: Yes Status: Acute Category: Medical Code(s): R09.02 - Hypoxemia The patient's infection will respond to the chosen ABx?: Yes Is the patient receiving the right drug, dose, and route?: Yes Could a more targeted ABx be ordered?: No (EMPIRIC THERAPY FOR PNEUMONIA)
--- NOTE | 2019-02-15 08:12 | Progress Note ---
Internal Medicine - PN: Subj *Date: 02/15/19 *Time: 08:09 Interval history: Patient states she is feeling better this morning. She diuresed some with the Lasix. She remained on oxygen throughout the night but has been off of oxygen this morning with sats in the lower 90s. She is anxious to go home. Her only complaint this morning is of a headache. Exam Vital signs and Labs for Last 24 Hours: Temp Pulse Resp BP Pulse Ox 97.9 F 84 18 156/87 H 93 L 02/15/19 03:54 02/15/19 06:13 02/15/19 03:54 02/15/19 03:54 02/15/19 06:13 I & O for Last 24 hours: Intake & Output 02/12/19 02/13/19 02/14/19 02/15/19 11:59 11:59 11:59 11:59 Intake Total 3510 / 3510 250 / 250 840 / 840 600 / 600 Output Total 1150 / 1150 1300 / 1300 300 / 300 Balance 2360 / 2360 -1050 / -1050 540 / 540 600 / 600 Weight 238 lb 2.011 oz 239 lb 1 oz 236 lb 1 oz 229 lb 1 oz - Constitutional no acute distress - *Routine Respiratory Exam Present: CTA bilaterally - *Routine Cardiovascular Exam Present: RRR - *Routine Abdominal Exam Present: soft, normoactive bowel sounds. Absent: tenderness - *Routine Extremities Exam Absent: cyanosis, clubbing, edema - *Routine Skin Exam Present: warm. Absent: rash - *Routine Neurological Exam Present: alert, oriented X3 Assessment and Plan (1) Pneumonia Current visit: Yes Status: Acute Qualifiers: Pneumonia type: due to unspecified organism Laterality: right Lung location: lower lobe of lung Qualified Code(s): J18.1 - Lobar pneumonia, unspecified organism Category: Medical Code(s): J18.9 - Pneumonia, unspecified organism (2) Rigors Current visit: Yes Status: Acute Category: Medical Code(s): R68.89 - Other general symptoms and signs (3) Elevated d-dimer Current visit: Yes Status: Acute Category: Medical Code(s): R79.89 - Other specified abnormal findings of blood chemistry (4) E. coli UTI (urinary tract infection) Current visit: Yes Status: Acute Category: Medical Code(s): N39.0 - Urinary tract infection, site not specified; B96.20 - Unspecified Escherichia coli [E. coli] as the cause of diseases classified elsewhere (5) Bacteremia Current visit: Yes Status: Acute Category: Medical Code(s): R78.81 - Bacteremia (6) Morbid obesity with BMI of 40.0-44.9, adult Current visit: Yes Status: Acute Category: Medical Code(s): E66.01 - Morbid (severe) obesity due to excess calories; Z68.41 - Body mass index (BMI) 40.0-44.9, adult (7) CHF (congestive heart failure) Current visit: Yes Status: Acute Category: Medical Code(s): I50.9 - Heart failure, unspecified (8) Hypoxia Current visit: Yes Status: Acute Category: Medical Code(s): R09.02 - Hypoxemia - Assessment and plan all Dx Assessment and Plan for all problems:: Still awaiting blood culture results and echo results. Possibly home later today.
--- NOTE | 2019-02-15 14:53 | Discharge Summary ---
General - General Admission date:: 02/10/19 Discharge date: 02/15/19 HPI HPI: This 73-year-old white female states that she has not felt well for nearly a month. Yesterday she developed a fever and shaking chills. She has had some fever and shaking chills today as well. She has had a cough productive of greenish sputum. She is not seeing blood in the sputum. She has not had chest pain. She has not had leg pain. She presented to the emergency room at [facility] for evaluation. Her chest x-ray is suggestive of atelectasis and possible infiltrate in the right base. Her white count is not elevated. Her oxygen saturations are low, 90%. Per Dr. Squires's request on admission d-dimer was obtained and is greater than 3000. The CTA of the chest with pulmonary embolism protocol has been obtained and the results are pending. She has received 100 mg of enoxaparin subcutaneously. She has been started on IV antibiotics, azithromycin and ceftriaxone. She has a history of hypertension hyperlipidemia, and depression. Hospital Course Hospital Course: The patient's CTA was negative for PE. It did show mild emphysematous changes and a few tiny pulmonary nodules. The patient was started on antibiotics and Lovenox 40 mg daily. Her symptoms did improve and she was able to be saline locked and her telemetry was discontinued. Her oxygen did drop into the 80s with exertion and while sleeping. She had a urine culture which was positive for E. coli and was sensitive to Rocephin. This was continued. She was also started on DuoNeb's. She had a repeat chest x-ray which showed mild CHF with lingular infiltrate and a trace right effusion. She was started on some Lasix and did diurese. Her shortness of breath greatly improved. An echocardiogram was ordered and is still pending. The preliminary report showed nothing of concern. She was able to be weaned off of her oxygen during the day with sats in the lower 90s, but did have to continue to sleep with oxygen. Her blood cultures were growing gram-positive cocci but they are still pending as well. The patient was anxious to be discharged home and was stable to be discharged on Bactrim as well as Lasix. She will need supplemental oxygen at home as well and will follow up with Dr. squires in the office. Objective Vital signs: Temp Pulse Resp BP Pulse Ox 97.8 F 76 16 155/79 H 94 L 02/15/19 12:00 02/15/19 12:00 02/15/19 12:00 02/15/19 12:00 02/15/19 12:00 Narrative: - Constitutional no acute distress (In bed. Nasal O2 in place.) - *Routine HEENT Exam Head: Present: normocephalic Eye: Present: PERRL ENT: Present: mucous membranes moist - *Routine Neck Exam Present: supple. Absent: lymphadenopathy, thyromegaly - Routine Chest/Breast/Axilla Exam Chest wall: Absent: tenderness - *Routine Respiratory Exam Present: rales (Rales heard in the right base. Otherwise moving air well.). Absent: respiratory distress - *Routine Cardiovascular Exam Present: RRR - *Routine Abdominal Exam Present: soft (Obese) - *Routine Rectal Exam Comments: Rectal exam deferred - *Routine Extremities Exam Present: pulses intact. Absent: edema - *Routine Skin Exam Present: intact Comments: Mild diaphoresis - *Routine Neurological Exam Present: alert, oriented X3. Absent: motor deficit Results Labs on day of discharge: Preliminary micro results at discharge 02/10/19 18:50 Blood Culture - Preliminary Blood 02/10/19 18:50 Blood Culture - Preliminary Blood Gram Positive Cocci DS: Diagnosis - Discharge Diagnosis (1) Pneumonia Status: Acute (2) Rigors Status: Acute (3) Elevated d-dimer Status: Acute (4) E. coli UTI (urinary tract infection) Status: Acute (5) Bacteremia Status: Acute (6) Morbid obesity with BMI of 40.0-44.9, adult Status: Acute (7) CHF (congestive heart failure) Status: Acute (8) Hypoxia Status: Acute Discharge Plan - Patient Discharge Instructions ACTIVITY: Continue current activity DIET: advance to your usual diet Patient Instructions: Pneumonia-Adult, Heart Failure, Escherichia coli Infection, Heart-Healthy Diet, Pneumococcal Vaccine, DI for Heart Failure, DI for Pneumonia -- Adult, DI for Urinary Tract Infection (UTI), Low-Sodium Diet - Follow up Plan Follow up with: Chava Squires MD [Primary Care Provider] - 02/26/19 Disposition: Home, Self-Half-Way Medications: Home Medications Medication Instructions Recorded Confirmed Type Carvedilol [Carvedilol 12.5mg Tab] 12.5 mg PO HS 08/31/19 09/01/19 History Carvedilol [Carvedilol 12.5mg Tab] 25 mg PO DAILY 02/10/19 02/10/19 History Sertraline HCl [Zoloft] 100 mg PO DAILY 02/10/19 02/10/19 History Spironolactone [Spironolactone 25 mg PO DAILY 02/10/19 02/10/19 History 25mg Tablet] Furosemide [Furosemide 40MG tAB] 40 mg PO DAILY #30 tab 02/15/19 Rx Potassium Chloride [Klor-Con 10mEq 10 meq PO DAILY #30 tablet.er 02/15/19 Rx tab] Sulfamethoxazole/Trimethoprim 1 each PO BID #14 tab 02/15/19 Rx [Bactrim DS tablet] Prescriptions/Medication Reconciliation: New Potassium Chloride [Klor-Con 10mEq tab] 10 meq PO DAILY #30 tablet.er Sulfamethoxazole/Trimethoprim [Bactrim DS tablet] 1 each PO BID #14 tab Furosemide [Furosemide 40MG tAB] 40 mg PO DAILY #30 tab Continued Spironolactone [Spironolactone 25mg Tablet] 25 mg PO DAILY Sertraline HCl [Zoloft] 100 mg PO DAILY Carvedilol [Carvedilol 12.5mg Tab] 25 mg PO DAILY Carvedilol [Carvedilol 12.5mg Tab] 12.5 mg PO HS - Problem Reconciliation Problems Reviewed?: Yes
--- NOTE | 2019-02-16 17:22 | Cardiology Report ---
APPROVED REPORT EXAM: Comprehensive 2D, Doppler, and color-flow Echocardiogram Doll Wig Maker: Traci Chiu, RT(R) Ht: 5 ft 2 in Wt: 236lbs BSA: 2.05 BP: 133/76 mmHg Indications: Congestive Heart Failure, Pneumonia, Hypoxia Shortness of Breath, Obesity, Dyspnea, Hypertension/HDD 2D Dimensions LVOT 1.80 cm (M/F) 1.5-2.5 M-Mode Dimensions RVDd 2.90 cm (0.9-2.6)LA Diam 4.10 cm (1.9-4.0) LVDd 5.30 cm (3.5-5.7)Ao Diam 2.90 cm (2.0-3.7) LVDs 3.20 cm (3.5-5.7)AV Cusp 1.70 cm (1.5-2.6) IVSd 1.00 cm (0.6-1.1)PWd 0.80 cm (0.6-1.1) EF (Teich) 69.60% FS 39.60% EDV (Teich) 135.00 mLESV (Teich) 41.00 mL LV Diastology E/A Ratio 0.6MED E' 5.17 (< 7 cm/sec) E'/MED E' Ratio12.20 (>14)LAT E' 9.36 (<10 cm/sec) E/LAT E' Ratio 6.80 (>14) Aortic Valve AoV Peak Ren. 131.00 (50-130 cm/s)AI PHT 270.00 ms AO Peak GR. 7.00 mmHg Mitral Valve MV E Max Ren. 63.20 (40-130 cm/s)MV A Velocity 106.00 (40-130 cm/s) E/A Ratio 0.60 Pulmonary Valve PA Accel Time 116.00 (>120 msec) Tricuspid Valve TR P. [id number] cm/s Left Ventricle Left atrium is mildly enlarged, left ventricle is normal size, mild concentric left ventricular hypertrophy, visually estimated ejection fraction 55% with no regional wall motion abnormality. Grade 1 diastolic dysfunction seen without tissue Doppler evidence of raise left atrial pressure. Right Ventricle Right atrium and right ventricle mildly enlarged with normal contractility. Aortic Valve Aortic valve is thickened and calcified leaflet continue to display good mobility, there is no aortic stenosis, there is mild aortic insufficiency. Mitral Valve Mitral valve is grossly normal, there is mild mitral regurgitation. Tricuspid Valve Tricuspid valve is grossly normal, there is mild tricuspid regurgitation Pulmonic Valve Pulmonic valve is poorly visualized. Great Vessels Aortic root is normal size. Pericardium No significant pericardial effusion noted. Conclusion 1. Biatrial enlargement, normal left ventricular size, mild concentric left ventricular hypertrophy, visually estimated ejection fraction 55% with no regional wall motion abnormality, grade 1 diastolic dysfunction seen without tissue Doppler evidence of raise left atrial pressure. 2. Mildly enlarged right ventricle with normal contractility. 3. Thickened and calcified aortic valve without aortic stenosis, there is mild aortic insufficiency. 4. Mild mitral and tricuspid regurgitation 5. No significant pericardial effusion noted, inferior vena cava is mildly dilated with normal inspiratory collapse. Electronically signed by : Chan Baez, 02/16/2019 17:22:21
== END 2019-02-15 12:33 | disposition home or self-care (01) | DRG 194 ==
LOC: ER 16:41 → 2ND 16:41
PROVIDERS: ADMIT Family Medicine; ATTEND Family Medicine
CPT/HCPCS: 36415; 71010; 71020; 71045; 71046; 71275; 80048; 80076; 81001; 82803; 83605; 84484; 85007; 85025; 85378; 87040; 87070; 87077; 87086; 87088; 87186; 87205; 87275; 87276; 93005; 93306; 94640; 94761; 96365; 96366; 99285; J0456; Q9967

== ENCOUNTER 2020-12-04 20:45 | Emergency (ER) | payer MEDICARE, OTHER, SELFPAY ==
[2020-12-04 20:54] VITALS: BP 156/91; PULSE 78; RESP 18; TEMP 36.5; O2SAT 94; BMI 37.7
--- NOTE | 2020-12-04 20:56 | ECG_ITS ---
APPROVED REPORT Exam: Resting ECG HR:74 bpm ECG Measurements Heart Rate 74 AXES NE 146 P 21 QRSd 90 QRS -38 QT 394 T 38 QTc 437 Conclusion Normal sinus rhythm Left axis deviation Abnormal ECG Electronically signed by : Trev Choudhary, 12/05/2020 15:58:29
[2020-12-04 21:02] VITALS: BP 146/85; PULSE 78; O2SAT 95
--- NOTE | 2020-12-04 21:03 | CT_ITS ---
PROCEDURE INFORMATION: Exam: CT Abdomen And Pelvis With Contrast Exam date and time: 12/04/2020 9:03 PM Age: 75 years old Clinical indication: Abdominal pain; Generalized; Prior surgery; Surgery date: 6+ months; Surgery type: Appendectomy, tubal ligation TECHNIQUE: Imaging protocol: Computed tomography of the abdomen and pelvis with contrast. Radiation optimization: All CT scans at this facility use at least one of these dose optimization techniques: automated exposure control; mA and/or kV adjustment per patient size (includes targeted exams where dose is matched to clinical indication); or iterative reconstruction. Contrast material: ISOVUE; Contrast volume: 75 ml; Contrast route: IV; COMPARISON: ABDPELW/O CT ABD PELVIS W/O CONTRAST 01/07/2016 8:54 AM FINDINGS: Liver: Normal. No mass. Gallbladder and bile ducts: Distended gallbladder but no calcified stones. Pancreas: Normal. No ductal dilation. Spleen: Normal. No splenomegaly. Adrenal glands: Normal. No mass. Kidneys and ureters: Normal. No hydronephrosis. Stomach and bowel: Diverticulosis in the sigmoid without diverticulitis. Constipation. No colitis. No small bowel obstruction. Appendix: Appendectomy. Intraperitoneal space: Unremarkable. No free air. No significant fluid collection. Vasculature: Unremarkable. No abdominal aortic aneurysm. Lymph nodes: Unremarkable. No enlarged lymph nodes. Urinary bladder: Unremarkable as visualized. Reproductive: Unremarkable as visualized. Bones/joints: Degenerative changes in the lower lumbar spine. Soft tissues: Unremarkable. IMPRESSION: No acute finding in the abdomen pelvis peer
--- NOTE | 2020-12-04 21:13 | HMH.EDBACK ---
ED Disposition Clinical Impression: Abdominal pain, Back pain Disposition: Home, Self-Care Condition on Discharge: Good Instructions: DI for Low Back Pain Additional Instructions: Return to the emergency department for worsening pain vomiting fever or any other concerns within the next 8 hours. Otherwise follow-up with your primary care physician tomorrow Referrals: Chava Patel MD [Primary Care Provider] - - Critical Care Critical Care Time: No Attestation: On 12/04/20, the high probability of a clinically significant, sudden or life threatening deterioration of the following system(s) required my full and direct attention, intervention and personal management. The time I documented below is in addition to time spent performing reported procedures but includes the following listed in this critical care notation. Medical Decision Making - Medical Records Medical records reviewed: Yes: I reviewed the patient's medical records. - [place] Inquiry Pt receiving controlled substance: No Vital Signs: 12/04/20 20:54 12/04/20 21:02 12/04/20 22:25 Temperature 97.7 F Temperature Source Oral Pulse Rate 78 68 Pulse Rate [Right] 78 Respiratory Rate 18 Blood Pressure 146/85 H 160/97 H Blood Pressure [Right Arm] 156/91 H Blood Pressure Mean [Right Arm] 112 Blood Pressure Source [Right Arm] Automatic Cuff Blood Pressure Position [Right Arm] Sitting 02 Sat by Pulse Oximetry 94 L 95 93 L Oxygen Delivery Method Room Air Room Air Room Air - Lab Data Lab Results 12/04/20 21:04: WBC 7.9, RBC 4.83, Hgb 14.2, Hct 41.8, MCV 86.4, MCH 29.3, MCHC 33.9, RDW 12.9, Plt Count 172, MPV 8.7, Neut % (Auto) 69.2, Lymph % (Auto) 22.6, Grady % (Auto) 3.6, Eos % (Auto) 3.8, Baso % (Auto) 0.7, Neut # (Auto) 5.5, Lymph # (Auto) 1.8, Grady # (Auto) 0.3, Eos # (Auto) 0.3, Baso # (Auto) 0.1 12/04/20 21:04: Sodium 135 L, Potassium 4.3, Chloride 101, Carbon Dioxide 27, Anion Gap 11.3, BUN 15, Creatinine 0.80, Estimated Creat Clear 73, Estimated GFR 70, Est GFR ( Amer) 84, Glucose 151 H, Calcium 9.2, Total Bilirubin 0.5, AST 30, ALT 14, Alkaline Phosphatase 92, Troponin I < 0.01, Total Protein 7.5, Albumin 4.4, Globulin 3.1, Albumin/Globulin Ratio 1.4, Lipase 204 Result diagrams: 12/04/20 21:04 12/04/20 21:04 Orders (Tests/Meds): ED MEDICATIONS Generic Name Dose Route Start Last Admin Trade Name Freq PRN Reason Stop Dose Admin Morphine Sulfate 4 mg 12/04/20 21:03 12/04/20 21:15 Morphine 4mg/Ml Syringe IV 01/03/21 21:02 4 mg Q1HP PRN Administration Moderate to Severe Pain Discontinued Medications Generic Name Dose Route Start Last Admin Trade Name Freq PRN Reason Stop Dose Admin Belladonna Alkaloids 60 ml 12/04/20 21:03 12/04/20 21:13 Gi Cocktail 60ml Udc PO 12/04/20 21:04 60 ml ONCE ONE Administration Iopamidol 75 ml 12/04/20 21:39 12/04/20 21:40 Iopamidol-370 (76%);100ml Bottle IV 12/04/20 21:40 75 ml ONCE ONE Administration Ondansetron HCl 4 mg 12/04/20 21:03 12/04/20 21:40 Ondansetron 4mg Odt SL 12/04/20 21:04 Not Given ONCE ONE Ondansetron HCl 4 mg 12/04/20 21:13 12/04/20 21:13 Ondansetron 4mg/2ml Vial IV 12/04/20 21:14 4 mg ONCE ONE Administration Sodium Chloride 10 ml 12/04/20 21:39 12/04/20 21:40 Sodium Chloride 0.9% 10ml Syr (Rad Only) IV 12/04/20 21:40 10 ml ONCE ONE Administration ORDERS Category Date Time Status Troponin I Q3H Lab 12/05/20 00:15 Ordered Troponin I Q3H Lab 12/05/20 03:15 Ordered Medical Decision Narrative: 75-year-old female presents with back pain radiating to her abdomen. She is in no acute distress nontoxic-appearing comfortable in the room. Her vital signs are stable. On my exam she did not have significant tenderness and her pain was improving. She did have burning in her chest when the episode occurred EKG shows no evidence of ischemic findings troponin has been ordered. Atyp
[2020-12-04 21:16] LABS: Basophils # 0.1 K/mm3 (0-0.2); Basophils % 0.7 % (0.1-2.0); Eosinophils # 0.3 K/mm3 (0.0-0.4); Eosinophils % 3.8 % (0.1-12.0); Hematocrit 41.8 % (37.0-47.0); Hemoglobin 14.2 g/dL (12.2-16.2); Lymphocytes # 1.8 K/mm3 (0.7-4.5); Lymphocytes % 22.6 % (10-50); Mean Corpuscular HGB Conc 33.9 g/dL (31.8-35.4); Mean Corpuscular Hemoglobin 29.3 pg (27.0-31.2); Mean Corpuscular Volume 86.4 fl (81-99); Mean Platelet Volume 8.7 fl (7.4-10.4); Monocytes # 0.3 K/mm3 (0.1-1.0); Monocytes % 3.6 % (1.7-9.3); Neutrophils # 5.5 K/mm3 (1.8-7.8); Neutrophils % 69.2 % (37.0-80.0); Platelet Count 172 K/mm3 (142-424); Red Blood Count 4.83 M/mm3 (4.20-5.40); Red Cell Distribution Width 12.9 % (11.5-17.5); White Blood Count 7.9 K/mm3 (4.8-10.8)
[2020-12-04 21:19] LABS: Alanine Aminotransferase 14 U/L (12-78); Albumin Level 4.4 g/dl (3.5-5.0); Albumin/Globulin Ratio 1.4 (1.1-1.8); Alkaline Phosphatase 92 U/L (38-126); Anion Gap 11.3 mEq/L (5-15); Aspartate Amino Transferase 30 U/L (14-36); Bilirubin,Total 0.5 mg/dl (0.2-1.3); Blood Urea Nitrogen 15 mg/dl (7-17); Calcium 9.2 mg/dl (8.4-10.2); Carbon Dioxide 27 mmol/L (22.0-30.0); Chloride 101 mmol/L (98-107); Creatinine Clearance Estimated 73 mL/min (50-200); Estimated Glomerular Filt Rate 70 ml/min (>60); GFR (African American) 84 ML/MIN (>60); Globulin 3.1 g/dL (1.3-3.2); Glucose 151 mg/dl (74-100); Lipase 204 U/L (23-300); Potassium 4.3 mmoL/L (3.5-5.1); Sodium 135 mmol/L (136-145); Total Protein,Serum 7.5 g/dl (6.3-8.2)
[2020-12-04 21:34] LABS: Troponin I < 0.01 ng/ml (0.00-0.034)
[2020-12-04 22:25] VITALS: BP 160/97; PULSE 68; O2SAT 93
[2020-12-04 22:34] VITALS: BP 162/98; PULSE 70; RESP 16; TEMP 36.6; O2SAT 94
== END 2020-12-04 22:40 | disposition home or self-care (01) ==
PROVIDERS: Emergency Provider Emergency Medicine; PCP Family Medicine
DX: M54.6 Pain in thoracic spine (principal); E78.5 Hyperlipidemia, unspecified; I10 Essential (primary) hypertension; F41.9 Anxiety disorder, unspecified; Z87.891 Personal history of nicotine dependence; Z79.899 Other long term (current) drug therapy
CPT/HCPCS: 74177; 80053; 83690; 84484; 85025; 93005; 96374; 96375; 99282; J2405; Q9967

== ENCOUNTER → 2023-01-04 23:36 | Outpatient (CLI) | payer MEDICARE, SELFPAY ==
[2023-01-04 18:54] LABS: Alanine Aminotransferase 15 U/L (12-78); Albumin Level 3.8 g/dl (3.5-5.0); Albumin/Globulin Ratio 1.4 (1.1-1.8); Alkaline Phosphatase 105 U/L (38-126); Anion Gap 9.5 mEq/L (5-15); Aspartate Amino Transferase 26 U/L (14-36); Basophils % 0.4 % (0.1-2.0); Bilirubin,Total 0.4 mg/dl (0.2-1.3); Blood Urea Nitrogen 20 mg/dl (7-17); Calcium 8.8 mg/dl (8.4-10.2); Carbon Dioxide 30 mmol/L (22.0-30.0); Chloride 103 mmol/L (98-107); Chol/HDL Ratio 9.5 (1-3.5); Cholesterol 208 mg/dl (140-200); Eosinophils # 0.2 K/mm3 (0.0-0.4); Eosinophils % 2.6 % (0.1-12.0); Estimated Glomerular Filt Rate 61 ml/min (>60); GFR (African American) 73 ML/MIN (>60); Globulin 2.8 g/dL (1.3-3.2); Glucose 96 mg/dl (74-100); HDL Cholesterol 22 mg/dl (40-60); Hematocrit 45.6 % (37.0-47.0); Hemoglobin 14.1 g/dL (12.2-16.2); Lymphocytes # 2.1 K/mm3 (0.7-4.5); Lymphocytes % 29.2 % (10-50); Mean Corpuscular HGB Conc 30.9 g/dL (31.8-35.4); Mean Corpuscular Hemoglobin 28.8 pg (27.0-31.2); Mean Corpuscular Volume 93.2 fl (81-99); Mean Platelet Volume 9.9 fl (7.4-10.4); Monocytes # 0.4 K/mm3 (0.1-1.0); Monocytes % 6.1 % (1.7-9.3); Neutrophils # 4.4 K/mm3 (1.8-7.8); Neutrophils % 61.6 % (37.0-80.0); Platelet Count 228 K/mm3 (142-424); Potassium 4.5 mmoL/L (3.5-5.1); Red Cell Distribution Width 12.6 % (11.5-17.5); Sodium 138 mmol/L (136-145); Total Protein,Serum 6.6 g/dl (6.3-8.2); Triglycerides 219 mg/dl (30-150); VLDL Cholesterol 44 mg/dL (0-40); White Blood Count 7.2 K/mm3 (4.8-10.8)
[2023-01-04 19:11] LABS: 25-OH Vitamin D, Total 17.9 ng/mL (30-100); T4 (Thyroxine) 8.4 ug/dl (5.53-11.0)
== END ==
PROVIDERS: PCP Emergency Medicine; Visit Provider Emergency Medicine
DX: R68.89 Other general symptoms and signs (principal); I10 Essential (primary) hypertension; E55.9 Vitamin D deficiency, unspecified; R79.89 Other specified abnormal findings of blood chemistry; J18.1 Lobar pneumonia, unspecified organism
CPT/HCPCS: 80053; 80061; 82306; 84436; 84443; 85025

== ENCOUNTER 2024-07-09 14:21 | Outpatient (CLI) | payer MEDICARE, SELFPAY ==
--- NOTE | 2024-07-09 14:28 | XR_ITS ---
FINAL REPORT TECHNIQUE: Chest PA & Lateral CLINICAL HISTORY: PERSISTENT COUGH COMPARISON: None FINDINGS: 2 views of the chest were performed. The heart size is normal. The mediastinum is within normal limits. There appears to be left suprahilar mass measuring 2.8 cm. The lungs are otherwise clear. There are no pleural effusions. There is no pneumothorax. The bony thorax appears intact. IMPRESSION: 2.8 cm left suprahilar mass. Recommend infused CT chest. Reviewed, Interpreted and Dictated by Sae Kim MD Transcribed by Irish Mccann Authenticated and [facility]
== END 2024-07-09 23:59 | disposition home or self-care (01) ==
LOC: RAD 14:23
PROVIDERS: PCP Family Medicine; Visit Provider Family Medicine
DX: R05.3 Chronic cough (principal)
CPT/HCPCS: 71046

== ENCOUNTER 2024-08-22 09:45 | Emergency (ER) | payer MEDICARE, SELFPAY ==
[2024-08-22] VITALS (8 sets, daily range): BP systolic 124–147; BP diastolic 84–105; PULSE 87–113; RESP 19–29; TEMP 36.6–36.8; O2SAT 90–95; BMI 31.8
--- NOTE | 2024-08-22 09:58 | PC.NURSE ---
DR GOLDSTEIN AT BEDSIDE
--- NOTE | 2024-08-22 10:03 | CT_ITS ---
FINAL REPORT CLINICAL HISTORY: Fall, lower back/pelvic pain COMPARISON: None FINDINGS: Axial images through the pelvis were performed by computed tomography. Sagittal and coronal reconstruction images were performed. This study was performed with techniques to keep radiation doses as low as reasonably achievable (ALARA). Individualized dose reduction techniques using automated exposure control or adjustment of mA and/or kV according to the patient's size were employed. No fracture is identified. No dislocation identified. There is mild degenerative narrowing of the hips bilaterally. There is advanced disc space narrowing at the L4-5 and L5-S1 levels. Mild hypertrophic change of the sacroiliac joints is noted. Incidental note is made of gallstones in the gallbladder. IMPRESSION: No acute process. Degenerative change of the hips and lumbar spine as described. Incidental note is made of gallstones. Reviewed, Interpreted and Dictated by Sae Kim MD Transcribed by Senait Appiah Authenticated and [facility]
--- NOTE | 2024-08-22 10:03 | CT_ITS ---
FINAL REPORT TECHNIQUE: Axial imaging of the lumbar spine was obtained without contrast. Reformatted images were also obtained and reviewed.This study was performed with techniques to keep radiation doses as low as reasonably achievable, (ALARA). Individualized dose reduction techniques using automated exposure control or adjustment of mA and/or kV according to the patient's size were employed. CLINICAL HISTORY: Fall, lower back pain FINDINGS: There is a 30% compression deformity of the superior endplate of L2. Vertebrae are otherwise normal in height. There is significant disc space narrowing from L2-3 through L5-S1. Minimal spondylolisthesis is seen of L3 on L4. T12-L1: Unremarkable. L1-2: Mild retropulsion of the superior endplate of L2 with mild bilateral neuroforaminal narrowing. L2-3: Diffuse disc bulge with mild to moderate right and moderate left neuroforaminal narrowing. L3-4: Moderate diffuse disc bulge accentuated by spondylolisthesis. There is moderate bilateral neuroforaminal narrowing. L4-5: Moderate diffuse disc bulge with posterior osteophytes and moderate bilateral neuroforaminal narrowing. L5-S1: Endplate hypertrophy with moderate to high-grade bilateral neuroforaminal narrowing. Note is made of an abdominal aortic aneurysm measuring 3.1 cm. IMPRESSION: 30% compression deformity of the superior endplate of L2. Multilevel degenerative changes as above. 3.1 cm abdominal aortic aneurysm. Reviewed, Interpreted and Dictated by Sae Kim MD Transcribed by Jocelyn Ogden Authenticated and . [facility]
[2024-08-22] MEDS: ACETAMINOPHEN 500MG TAB 1000 MG PO (10:11)
[2024-08-22] MEDS: METHOCARBAMOL 500MG TABLET 1000 MG PO (10:11)
--- NOTE | 2024-08-22 10:19 | ED_ITS ---
Discharge Plan Disposition Patient Disposition: Home, Self-Care Condition: Good Prescriptions Prescriptions: New methocarbamol 500 mg tablet 500 mg PO TID PRN (Reason: Spasms) 7 Days Qty: 21 0RF nitrofurantoin macrocrystal 100 mg capsule 100 mg PO BID 5 Days Qty: 10 0RF Rx Instructions: must administer with a meal/food No Action aspirin [Adult Low Dose Aspirin] 81 mg tablet,delayed release (DR/EC) 81 mg PO DAILY Qty: 90 3RF carvedilol 12.5 mg tablet 12.5 mg PO TID 90 Days Qty: 270 2RF Rx Instructions: 2 tabs in morning and 1 tab in the evening. sertraline 100 mg tablet 100 mg PO DAILY Qty: 90 3RF spironolactone 25 mg tablet 25 mg PO DAILY Qty: 90 3RF Referrals Follow up/Referrals: Juan Alan MD [Staff Physician] - See instructions Chava Patel MD [Primary Care Provider] - See instructions Activity Restrictions/Add. Instructions Additional Instructions/Restrictions: You can take Tylenol every 6 hours as needed to help with your symptoms. You are also being prescribed Robaxin to help with muscle relaxation. You can also use lidocaine patches, which you can order picker/assembler [id number], to help with pain. You are being referred to Dr. Alan with pain management to help with your symptoms. Call this number at your earliest convenience to set up an appointment: [phone]. You are also found to have a urinary tract infection and are being prescribed Macrobid. Take this as prescribed. If you develop any new or worsening symptoms, or if you become concerned for your health for any reason, return to the emergency department for evaluation Clinical Impressions Clinical Impression: Compression fracture of L2, Back pain, Acute UTI Instructions Patient Instructions: DI for Low Back Pain Print Language Print Language: Icelandic Discharge ED Provider: Jerald Gilliland Adult [facility] General Chief complaint: Back Pain/Injury Stated complaint: AO-Fall 07/29, lower back pain Time Seen by Provider: 08/22/24 09:56 Mode of Arrival: Wheelchair Source of Information: Patient and Relative Description of Symptoms (Recalled from ER Triage Doc. by RN): pt fell araound mid july on to bottom and had pain shoot up spine now, she is having aching pain across low back and is having a hard time doing daily functions around the house History of Present Illness HPI narrative: Carmen Garcia is a 78y female with a past medical history of obesity, UTI when ambulating at home at baseline who presents to the emergency department for complaints of lower back pain. Patient states that she uses a rollator at baseline, and on 07/29, she lost her balance while walking and ended up falling. Since then, she has had pain in her lower back that goes across her entire lower back and pelvic region. She has still been ambulatory since then and has been able to take care of her ill . She has been using Voltaren gel on her back and that relieves the pain. She also states that laying down oftentimes relieves the pain and she is able to go several hours until the pain returns. Her convinced her to come to the emergency department today due to her symptoms not resolving. She denies any other injuries or trauma or urinary symptoms and states that she has been urinating well and having normal bowel movements. Related Data Previous Rx's ?Medication ?Instructions ?Recorded aspirin 81 mg tablet,delayed 81 mg PO DAILY chf #90 tabs 04/12/23 release (Adult Low Dose Aspirin) carvedilol 12.5 mg tablet 12.5 mg PO TID 90 days #270 tabs 04/12/23 sertraline 100 mg tablet 100 mg PO DAILY Depression #90 tabs 04/12/23 spironolactone 25 mg tablet 25 mg PO DAILY Fluid #90 tabs 04/12/23 methocarbamol 500 mg tablet 500 mg PO TID PRN Spasms 7 days 08/22/24 #21 tabs nitrofurantoin macrocrystal 100 mg 100 mg PO BID 5 days #10 caps 08/22/24 capsule Allergies Allergy/AdvReac Type Severity Reaction Status Date / Time No Known Allergies Allergy Verified 08/22/24 09:51 [facility] Disclaimer: The information contained in this section may have been updated after the patient was seen, as this information can be updated by other users. Medical History (Updated 08/22/24 @ 13:11 by Jerald Gilliland MD) Vertigo Hypertension Surgical History (Updated 01/04/23 @ 14:58 by Nena Espinoza MA) Hx of appendectomy H/O tubal ligation Social History Smoking Status: Former smoker tobacco type: cigarettes packs per day: 1 second hand exposure: Yes alcohol intake: former substance use type: denies use current occupational status: retired Travel in the last 8 weeks: None household members: spouse housing: apartment caffeine: Yes Have you lived/traveled outside [place] in past 30 days?: No Contact w/someone who lives/traveled outside [place] past 30 days?: No Exposure to someone with infectious disease in past 14 days?: No Do you have a fever (greater than 100.4 F or 38 C)?: No Have you tested positive for COVID-19: No Exposed to someone with COVID-19 in past 14 days?: No Do you have a sore throat?: No Do you have a cough?: No Do you have any weakness?: No Do you have any diarrhea?: No Are you experiencing any unusual bleeding?: No Do you have any muscle aches/pain?: No Do you have any abdominal pain?: Yes Are you experiencing loss of taste or smell?: No Other Medical History Have you received the Flu Vaccine for this season: Yes Have you received the Pneumonia Vaccine: Yes ROS Obtained: Yes Systems reviewed as appropriate & no additional complaints except as documented Physical Exam General General appearance: alert and in no apparent distress Head Head exam: atraumatic Eye Eye exam: Present normal appearance ENT ENT exam: Present normal external ear exam Neck Neck exam: Present full ROM Chest Chest inspection: Present symmetric chest wall rise Respiratory Respiratory exam: Present normal lung sounds bilaterally; Absent respiratory distress Cardiovascular Cardiovascular exam: Present regular rate and normal rhythm Abdominal Exam Abdominal exam: Present soft; Absent tenderness or guarding Extremities Exam Extremities exam: Present normal inspection Back Exam Back exam: Present normal inspection; Absent paraspinal tenderness or vertebral tenderness Neurological Exam Neurological exam: Present alert and oriented X3 Psychiatric Psychiatric exam: Present normal affect Skin Skin exam: Present warm and dry Medical Decision Making Medical Records Screening: Per USPSTF and CDC recommendations, given the prevalence of disease in our region, it is our hospital?s policy to screen for HIV and viral Hepatitis for all patients aged 18 and over and those with ongoing risk factors. [place] Inquiry Pt receiving controlled substance: No Vital Signs: 08/22/24 09:54 08/22/24 10:00 08/22/24 10:30 Temperature 97.9 F Temperature Source Oral Pulse Rate 113 H 90 Pulse Rate [Left Radial] 89 Respiratory Rate 21 29 H 19 Blood Pressure 130/101 H 126/84 Blood Pressure [Right Arm] 147/105 H Blood Pressure Mean Blood Pressure Mean [Right Arm] 119 02 Sat by Pulse Oximetry 93 L 95 92 L Oxygen Delivery Method Room Air Room Air Room Air 08/22/24 11:00 08/22/24 11:30 08/22/24 12:00 Temperature Temperature Source Pulse Rate 89 91 H 87 Pulse Rate [Left Radial] Respiratory Rate 21 Blood Pressure 127/105 H 127/88 140/86 Blood Pressure [Right Arm] Blood Pressure Mean 112 114 Blood Pressure Mean [Right Arm] 02 Sat by Pulse Oximetry 92 L 90 L 91 L Oxygen Delivery Method Room Air 08/22/24 12:30 08/22/24 13:10 Temperature 98.2 F Temperature Source Pulse Rate 90 92 H Pulse Rate [Left Radial] Respiratory Rate 20 Blood Pressure 124/85 142/91 H Blood Pressure [Right Arm] Blood Pressure Mean Blood Pressure Mean [Right Arm] 02 Sat by Pulse Oximetry 95 Oxygen Delivery Method Room Air Room Air Lab Data Lab Results 08/22/24 11:10: Urine Color Yellow, Urine Appearance Slightly cloudy, Urine pH 5.5, Ur Specific Newton 1.025, Urine Protein Negative, Urine Glucose (UA) Negative, Urine Ketones Negative, Urine Blood Negative, Urine Nitrate Positive A , Urine Bilirubin Negative, Urine Urobilinogen 1.0, Ur Leukocyte Esterase 1+ A, Urine RBC Occasional, Urine WBC 10-20, Ur Squamous Epith Cells 5-10, Urine Bacteria 4+ Orders (Tests/Meds): ED MEDICATIONS Discontinued Medications Generic Name Dose Route Start Last Admin Trade Name Freq PRN Reason Stop Dose Admin Acetaminophen 1,000 mg 08/22/24 10:03 08/22/24 10:11 Acetaminophen 500mg Tab PO 08/22/24 10:04 1,000 mg ONCE ONE Administration Methocarbamol 1,000 mg 08/22/24 10:04 08/22/24 10:11 Methocarbamol 500mg Tablet PO 08/22/24 10:05 1,000 mg ONCE ONE Administration ORDERS Category Date Time Status CT bony pelvis Stat Cat Scan 08/22/24 10:[address] lumbar spine wo con Stat Cat Scan 08/22/24 10:03 Completed UA [Urinalysis and Microscopic] Stat Lab 08/22/24 11:10 Completed Urine Culture Stat Micro 08/22/24 11:10 Received Medical Decision Narrative: Carmen Garcia is a 78y female with a past medical history of obesity, UTI when ambulating at home at baseline who presents to the emergency department for complaints of lower back pain. Patient states that she uses a rollator at baseline, and on 07/29, she lost her balance while walking and ended up falling. Since then, she has had pain in her lower back that goes across her entire lower back and pelvic region. She has still been ambulatory since then and has been able to take care of her ill . She has been using Voltaren gel on her back and that relieves the pain. She also states that laying down oftentimes relieves the pain and she is able to go several hours until the pain returns. Her convinced her to come to the emergency department today due to her symptoms not resolving. She denies any other injuries or trauma or urinary symptoms and states that she has been urinating well and having normal bowel movements. On arrival, patient is mildly hypertensive but heart rate within normal limits, breathing comfortably on room air no acute respiratory distress. Afebrile. Physical exam, as stated above, revealed an overall well-appearing female in no distress. Cardiopulmonary exam is unremarkable. She has some mild bilateral lumbar paraspinal muscle tenderness but no midline tenderness in the lumbar spine or sacrum. Differential diagnosis includes, but is not limited to: UTI, spinal fracture, pelvic fracture, soft tissue injury, muscle strain, among others. Workup in the emergency department included: CT lumbar spine, CT bony pelvis, urinalysis. Lab work was considered, however given the patient's mechanism of injury and symptomatology, as well as reassuring vital signs, these are not indicated as they would not change ED management and were deferred at this time. Patient was treated symptomatically with Robaxin 1000 mg p.o. and [address] imaging was interpreted by me personally prior to official radiology read. No acute pelvic fractures. Patient does have degenerative changes of the lumbar spine and evidence of a mild superior endplate compression deformity at L2. Per radiology report there is 30% height loss at the superior endplate but vertebra otherwise maintaining normal height. See final radiology report for details. Given patient does not have any midline tenderness and height loss less than 50%, is felt that no spine surgeon evaluation is indicated. Given her prolonged pain, we will refer her to Dr. Bux for pain management and prescribe Robaxin and lidocaine patches for her to use at home. She was also encouraged to use Tylenol to help with symptoms. Return precautions were given. All questions were answered. She demonstrated understanding and was agreed with this plan. She was then discharged from the emergency department in stable condition Critical Care Critical Care Time Critical Care Time: No
[2024-08-22 11:12] LABS: Microscopic, Urine URINE MICROSCOPIC (MICROSCOPIC)
[2024-08-22 11:24] LABS: Appearance,Urine Slightly Cloudy (Clear); Color,Urine Yellow (Yellow)
[2024-08-22 11:25] LABS: Bilirubin,Urine Negative (Negative); Blood, Urine Negative (Negative); Glucose,Urine (UA) Negative (Negative); Ketones,Urine Negative (Negative); Nitrate,Urine POSITIVE (Negative); PH,Urine 5.5 (5.0-8.5); Protein,Urine Negative (Negative); Specific Gravity, Urine 1.025 (1.005-1.030)
[2024-08-22 11:26] LABS: Bacteria,Urine 4+ /lpf; Leukocyte Esterase,Urine 1+ (Negative); RBC,Urine Occasional #/hpf (0-3)
--- NOTE | 2024-08-24 09:00 | PC.NURSE ---
URINE CULTURE DISCUSSED WITH DR AMATO, NO NEW ORDERS
== END 2024-08-22 13:12 | disposition home or self-care (01) ==
PROVIDERS: Emergency Provider Student in an Organized Health Care Education/Training Program; PCP Family Medicine
DX: S32.020A Wedge compression fracture of second lumbar vertebra, initial encounter for closed fracture (principal); N39.0 Urinary tract infection, site not specified; M54.50 Low back pain, unspecified; W01.0XXA Fall on same level from slipping, tripping and stumbling without subsequent striking against object, initial encounter; Y93.89 Activity, other specified; Y92.9 Unspecified place or not applicable
CPT/HCPCS: 72131; 72192; 81001; 87086; 87088; 87186; 99284

== ENCOUNTER 2024-10-29 09:06 | Outpatient (CLI) | payer MEDICARE, SELFPAY ==
--- OUTSIDE RECORDS SUMMARY | 2024-10-29 09:09 | XMS_ITS ---
Author Organization Unknown TREATMENT PLAN Planned Care Start Date Provider Encounter for Check-up [id number] [facility]
--- NOTE | 2024-10-29 09:13 | XR_ITS ---
FINAL REPORT TECHNIQUE: Bone densitometry calculations of the lumbar spine and left hip were obtained. CLINICAL HISTORY: SCREENING COMPARISON: None FINDINGS: Using L1-4, the bone mineral density of the spine is 1.109 g/cm2, corresponding to T-score of 0.6. Using the left hip, the bone mineral density of the femoral neck is 0.592 g/cm2, corresponding to a T-score of -2.3. Using the right hip, the bone mineral density of the femoral neck is 0.677 g/cm?, corresponding to a T-score of -1.5. NOTE: T-score: Standard deviation compared with peak bone mass of young adult mean. *Following the recommendations of the International Society of Bone densitometry, classification of hip BMD is based on the lower of two T-scores; total hip or femoral neck. IMPRESSION: Diminished bone mineral density of the bilateral hips consistent with osteopenia. Normal bone mineral density of the lumbar spine. Reviewed, Interpreted and Dictated by Sae Kim MD Transcribed by Senait Appiah Authenticated and [facility]
== END 2024-10-29 23:59 | disposition home or self-care (01) ==
LOC: RAD 09:08
PROVIDERS: PCP Family Medicine; Visit Provider Family Medicine
DX: M85.852 Other specified disorders of bone density and structure, left thigh (principal); M85.851 Other specified disorders of bone density and structure, right thigh; Z13.820 Encounter for screening for osteoporosis
CPT/HCPCS: 77080